=== PATIENT | male | born 1995 | race Caucasian/White ===

== ENCOUNTER 2017-11-05 00:29 | Emergency (ER) | payer BC, MEDICAID, OTHER ==
[2017-11-05] MEDS ORDERED: NICOTINE 21 MG/24 HR PATCH.TD24 TD ONE (01:21)
[2017-11-05] MEDS ORDERED: OLANZAPINE 5 MG TABLET PO ONE (01:21)
--- NOTE | 2017-11-05 01:23 | ER Document Report ---
ED General - General Chief Complaint: Psych Problem Stated Complaint: PSYCH EVAL Time Seen by Provider: 11/05/17 01:08 Notes: Patient is a 22-year-old male with a past medical history of bipolar disorder, polysubstance abuse although reports that he is currently in remission with Suboxone who presents with his mother due to concerns of increasing paranoid delusions and agitation. The mother provides majority of the history as the patient is quite reserved although does intermittently contribute. They report that over the past several weeks although worsening dramatically in the past 48 hours the patient has become increasingly paranoid and appears to be responding to internal stimuli. The patient admits to regularly hearing auditory hallucinations but denies any specific commands. Mother reports that she finds new locks and cameras placed throughout the house each time she returns from work. She states that the patient is easily agitated and rapidly oscillates between being calm and polite to screaming and verbally threatening. She states that the patient did admit to some suicidal ideation when she asked him today but denies homicidal ideation. The patient denies any additional alcohol or drug abuse. He denies a history of symptoms to this degree of intensity in the past although apparently as a teenager did experience auditory hallucinations, was treated for bipolar disorder for a period of time but has been off all medication since 2013. He denies any acute medical complaints. TRAVEL OUTSIDE OF THE [place] IN LAST 30 DAYS: No - Related Data Allergies/Adverse Reactions: No Known Allergies Allergy (Unverified 11/05/17 00:41) Past Medical History - General Information source: Patient - Social History Smoking Status: Current Every Day Smoker Frequency of alcohol use: Heavy Drug Abuse: Marijuana, Prescription drugs Lives with: Family Family History: Reviewed & Not Pertinent Patient has suicidal ideation: Yes Patient has homicidal ideation: No Renal/ Medical History: Denies: Hx Peritoneal Dialysis Review of Systems - Review of Systems Notes: Constitutional: Negative for fever. HENT: Negative for sore throat. Eyes: Negative for visual changes. Cardiovascular: Negative for chest pain. Respiratory: Negative for shortness of breath. Gastrointestinal: Negative for abdominal pain, vomiting or diarrhea. Genitourinary: Negative for dysuria. Musculoskeletal: Negative for back pain. Skin: Negative for rash. Neurological: Negative for headaches, weakness or numbness. 10 point ROS negative except as marked above and in HPI. Physical Exam - Vital signs Vitals: Temp Pulse Resp BP Pulse Ox 98.9 F 83 16 147/79 H 97 11/05/17 00:39 11/05/17 00:39 11/05/17 00:39 11/05/17 00:39 11/05/17 00:39 Interpretation: Normal Notes: PHYSICAL EXAMINATION: GENERAL: Well-appearing, well-nourished and in no acute distress. HEAD: Atraumatic, normocephalic. EYES: Pupils equal round and reactive to light, extraocular movements intact, sclera anicteric, conjunctiva are normal. ENT: nares patent, oropharynx clear without exudates. Moist mucous membranes. NECK: Normal range of motion, supple without lymphadenopathy LUNGS: Breath sounds clear to auscultation bilaterally and equal. No wheezes rales or rhonchi. HEART: Regular rate and rhythm without murmurs ABDOMEN: Soft, nontender, normoactive bowel sounds. No guarding, no rebound. No masses appreciated. EXTREMITIES: Normal range of motion, no pitting or edema. No cyanosis. NEUROLOGICAL: No focal neurological deficits. Moves all extremities spontaneously and on command. PSYCH: Poor eye contact, flat affect. Does not appear to be actively responding to internal stimuli. SKIN: Warm, Dry, normal turgor, no rashes or lesions noted. Course - Re-evaluation Re-evalutation: 11/05/17 01:22 Patient presents with auditory hallucinations with associated commands, quite paranoid, mother at the bedside reports that he is sitting at cameras and placing walks all over the house. 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 He was diagnosed with bipolar disorder in the remote past but has never been diagnosed with schizophrenia, schizoaffective disorder or bipolar disorder with psychotic features. The patient is quiet but calm and cooperative. He is agreeable to remaining in the emergency department and will be given a dose of olanzapine as well as a nicotine patch. I have agreed that given the patient is denying any acute suicidal or homicidal ideation that we can avoid formal involuntary commitment at this time point. However I have emphasized with the patient that if he becomes agitated or begins to present safety concerns we would proceed with IVC. Psychiatrically laboratories will be obtained. He is otherwise cleared for evaluation and disposition by psychiatry in the morning 11/05/17 03:10 Patient is apparently a difficult stick and staff is working to obtain labs. The nurse has informed me that after the mother exited the room the patient did admit to recurrent heroin use and methamphetamine use which could certainly present with paranoid delusions and agitation. Patient continues to be quite cooperative and calm. Continues to deny suicidality - Vital Signs Vital signs: Temp Pulse Resp BP Pulse Ox 98.9 F 83 16 147/79 H 97 11/05/17 00:39 11/05/17 00:39 11/05/17 00:39 11/05/17 00:39 11/05/17 00:39 Discharge - Discharge Clinical Impression: Auditory hallucinations, Paranoid delusion Referrals: LOCALMD,NO [Primary Care Provider] - Follow up as needed
[2017-11-05 04:11] LABS: ABSOLUTE EOSINOPHILS # (AUTO) 0.4 10^3/uL (0.0-0.6); ABSOLUTE LYMPHOCYTES (AUTO) 1.7 10^3/uL (0.5-4.7); ABSOLUTE MONOCYTES (AUTO) 0.4 10^3/uL (0.1-1.4); BASOPHILS % (AUTO) 0.6 % (0-2); EOSINOPHILS % (AUTO) 6.5 % (0-6); HEMATOCRIT 42.3 % (37.9-51.0); HEMOGLOBIN 14.1 g/dL (13.5-17.0); LYMPHOCYTES % (AUTO) 31.2 % (13-45); MEAN CORPUSCULAR HEMOGLOBIN 28.6 pg (27.0-33.4); MEAN CORPUSCULAR HGB CONC 33.2 g/dL (32.0-36.0); MEAN CORPUSCULAR VOLUME 86 fl (80-97); MONOCYTES % (AUTO) 7.9 % (3-13); PLATELET COUNT 243 10^3/uL (150-450); RED BLOOD COUNT 4.92 10^6/uL (4.35-5.55); RED CELL DISTRIBUTION WIDTH 13.4 % (11.5-14.0); SEGMENTED NEUTROPHILS % (AUTO) 53.8 % (42-78); TOTAL CELLS COUNTED % (AUTO) 100 %; WHITE BLOOD COUNT 5.5 10^3/uL (4.0-10.5)
[2017-11-05 04:30] LABS: ALANINE AMINOTRANSFERASE 147 U/L (21-72); ALBUMIN 3.8 g/dL (3.5-5.0); ALKALINE PHOSPHATASE 70 U/L (38-126); ANION GAP 15 (5-19); ASPARTATE AMINO TRANSFERASE 91 U/L (17-59); BILIRUBIN,DIRECT 0.2 mg/dL (0.0-0.4); BILIRUBIN,TOTAL 0.3 mg/dL (0.2-1.3); BLOOD UREA NITROGEN 17 mg/dL (7-20); CALCIUM 9.4 mg/dL (8.4-10.2); CARBON DIOXIDE 27 mmol/L (22-30); CHLORIDE 102 mmol/L (98-107); GLUCOSE 105 mg/dL (75-110); SODIUM 144.3 mmol/L (137-145); TOTAL PROTEIN 6.9 g/dL (6.3-8.2)
[2017-11-05 04:31] LABS: ACETAMINOPHEN < 10 ug/mL (10-30); ALCOHOL < 10 mg/dL (NONE DETECTED); SALICYLATE < 1.0 mg/dL (2.0-20.0)
--- NOTE | 2017-11-05 07:35 | EKG REPORT ---
SEVERITY:- BORDERLINE ECG - SINUS RHYTHM ST ELEVATION SUGGESTS NORMAL VARAINT, CLINICAL CORRELATION NEEDED. : Confirmed by: Silvestre Quinn MD 05-Nov-2017 07:35:14
[2017-11-05] MEDS ORDERED: BUPRENORPHINE HCL 2 MG SUBLINGUAL TABLET SL SCH (10:00)
[2017-11-05] MEDS ORDERED: IBUPROFEN 600 MG TABLET PO ONE (10:04)
[2017-11-05] MEDS ORDERED: ACETAMINOPHEN 325 MG TABLET PO ONE (10:04)
--- NOTE | 2017-11-05 10:04 | ER Document Report ---
Doctor's Note Notes: 11/05/17 10:01 22-year-old male presented yesterday 11/04/2017 with increasing paranoia, auditory hallucinations. Patient does have a history of bipolar disorder, substance abuse. Patient is taking Subutex for remote heroin abuse. Mother brought in medication today which has been added to his daily medication orders. Patient evaluated by psychiatry who has initiated IVC paperwork. Additional medication recommendations include Haldol 5 mg twice daily and Cogentin 1 mg daily. Upon my exam patient is resting comfortably, complaining of a headache. He has been cooperative overnight. Patient will be held and stabilized here and further evaluated by psychiatry to determine disposition. PHYSICAL EXAMINATION: GENERAL: Well-appearing, well-nourished and in no acute distress. HEAD: Atraumatic, normocephalic. EYES: Pupils equal round extraocular movements intact, conjunctiva are normal. ENT: Nares patent NECK: Normal range of motion LUNGS: No respiratory distress Musculoskeletal: Normal range of motion NEUROLOGICAL: Normal speech, normal gait. PSYCH: Normal mood, normal affect. SKIN: Warm, Dry, normal turgor, no rashes or lesions noted.
[2017-11-05] MEDS: HALOPERIDOL 5 MG TABLET PO SCH ×2 (10:17→19:08)
[2017-11-05] MEDS: BENZTROPINE MESYLATE INJ 2 MG/2 ML AMPULE IM SCH (10:19)
[2017-11-05 11:02] LABS: APPEARANCE,URINE CLEAR; BILIRUBIN,URINE NEGATIVE (NEGATIVE); COLOR,URINE YELLOW; GLUCOSE, URINE NEGATIVE (NEGATIVE); KETONES,URINE NEGATIVE (NEGATIVE); LEUKOCYTE ESTERASE,URINE NEGATIVE (NEGATIVE); NITRITE,URINE NEGATIVE (NEGATIVE); PROTEIN,URINE NEGATIVE (NEGATIVE); URINE SPECIFIC GRAVITY 1.023
[2017-11-05 11:07] LABS: URINE BARBITURATES SCREEN NEGATIVE; URINE BENZODIAZEPINES SCREEN NEGATIVE; URINE COCAINE SCREEN UNCONFIRMED POSITIVE; URINE MARIJUANA (THC) SCREEN NEGATIVE; URINE METHADONE SCREEN NEGATIVE; URINE PHENCYCLIDINE SCREEN NEGATIVE
[2017-11-05] MEDS: BUPRENORPHINE HCL 2 MG SUBLINGUAL TABLET SL SCH (19:13)
[2017-11-06] MEDS: BENZTROPINE MESYLATE INJ 2 MG/2 ML AMPULE IM SCH (09:11)
[2017-11-06] MEDS: HALOPERIDOL 5 MG TABLET PO SCH ×2 (09:12→17:32)
[2017-11-06] MEDS: BUPRENORPHINE HCL 2 MG SUBLINGUAL TABLET SL SCH (09:31)
--- NOTE | 2017-11-06 16:44 | ER Document Report ---
Doctor's Note Notes: 11/06/17 16:44 Patient has been resting comfortably today without problems. He has been accepted at [facility] and should be transported tomorrow.
[2017-11-06] MEDS ORDERED: NICOTINE 21 MG/24 HR PATCH.TD24 TD ONE (18:12)
[2017-11-07 08:42] VITALS: BP 110/70
--- NOTE | 2017-11-07 09:52 | ER Document Report ---
Doctor's Note Notes: 11/07/17 09:51 Rounds: Chart reviewed and patient interviewed. Patient's being evaluated for agitation, paranoia, and substance abuse (drug screen positive for cocaine and amphetamines. Vital signs are all normal. Lab studies are normal except for his drug screen positive for cocaine and amphetamines. Patient appears to be medically stable for transfer or discharge. Patient has been accepted at [facility] and should be transported there today. Mukund Villalba MD
[2017-11-07] MEDS: BENZTROPINE MESYLATE INJ 2 MG/2 ML AMPULE IM SCH (09:57)
[2017-11-07] MEDS: HALOPERIDOL 5 MG TABLET PO SCH (09:57)
[2017-11-07] MEDS: BUPRENORPHINE HCL 2 MG SUBLINGUAL TABLET SL SCH (09:57)
[2017-11-07] MEDS ORDERED: NICOTINE 21 MG/24 HR PATCH.TD24 TD ONE (10:04)
--- NOTE | 2017-11-07 11:17 | PSYCHOLOGICAL NOTE ---
Psych Note - Psych Note Psych Note: Reason for consult: Paranoia Consent permissions: Patient requests that his substance abuse and toxicology screenings are not discussed with his mother Patient presents to ED accompanied by mother, with increased paranoia, feelings of being followed and watched, and increase in anxiety. Patient lying in bed, withdrawn from conversation, mother frequently answers questions for him. Mother reports patient has installed cameras around the home, placed new locks and bolts on his bedroom door. Symptoms have been present approximately 1 month. Patient disclosed that he arrived to [facility] because his mother drove him. He reports he has been "hearing voices and stuff." He reports that the last couple weeks it has gotten worse however it has been going on for a while. He states that when he hears voices "it is like someone is standing right next me and was spurring in my ear." Patient discloses he is prescribed Adderall and that he did meth approximately 5 days ago however disclosed that at the time he "thought it was a mollie." Patient discloses that has been about 2 months since he has used heroin and reports he is prescribed Subutex. Patient reports that he felt like harming himself last night. When asked if he had a plan he stated "hanging myself because I do not own a gun." He reports that he has had chronic suicidal ideation for the past 2 years however has never attempted. He confirms maladaptive coping skills of cutting and using drugs. Patient confirms that he is not having thoughts of harming himself "right the second" then stated "its the stuff I hear... that stuff they say..." Patient's mother discloses the patient has a history of being diagnosed bipolar since a young age. She reports that the patient went to detox in 2013. She disclosed that she has noticed the patient's presentation getting worse with increased paranoia, locking things around the home, installing cameras, accusing people of watching him and stating that he is hearing voices. She reports that the patient mentioned wanting to harm himself so brought him in last night. Patient is alert and orientated to person, place, time, and circumstance. Mood is euthymic with flat affect. Patient endorses chronic suicidal ideation and reports a plan last night of hanging himself "because I don't own a gun." Patient denies homicidal ideation. Patient endorses command auditory hallucinations. Medication recommendations per [facility]'s contracted psychiatrist Dr. Micah QUINTANA are as follows: 1. Haldol 5 mg twice daily 2. 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 Patient discloses command auditory hallucinations with concerns of suicidal ideation. It appears the patient has been attempting to self medicate for multiple years from a mental health diagnosis of bipolar disorder identified at a young age. Patient discloses suicidal plan of hanging himself because he did not have access to a gun. Dr. Vazquez was consulted on the care and management as patient; attending physician is in agreement with recommendations and disposition.
--- NOTE | 2017-11-07 12:29 | PSYCHOLOGICAL NOTE ---
Psych Note - Psych Note Psych Note: Reason for consult: Paranoia Consent permissions: Patient requests that his substance abuse and toxicology screenings are not discussed with his mother Patient presents to ED accompanied by mother, with increased paranoia, feelings of being followed and watched, and increase in anxiety. Patient lying in bed, withdrawn from conversation, mother frequently answers questions for him. Mother reports patient has installed cameras around the home, placed new locks and bolts on his bedroom door. Symptoms have been present approximately 1 month. Check-in conducted with patient Patient still is presenting flat. Clinician spoke with patient's mother about placement to [facility]. Patient initially stated he was not going then started to cry. Clinician notes patient has since been very calm. Patient's mother discloses the patient's reaction was much better than she anticipated ( patient's mother was concerned the patient would become very irate and aggressive upon being told). Medication recommendations per [facility]'s contracted psychiatrist Dr. Micah QUINTANA are as follows: 1. Haldol 5 mg twice daily 2. 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 Patient discloses auditory hallucinations with concerns of suicidal ideation. Patient has reports a plan of hanging himself because he did not have access to a gun. It appears the patient has been attempting to self medicate for multiple years from a mental health diagnosis of bipolar disorder identified at a young age. Patient disclosed chronic suicidal ideation with command auditory hallucination to kill himself. Patient has been accepted to [facility]; transportation will occur today. Dr. Vazquez was consulted and the care management this patient; attending physician is agreement with recommendations and disposition
--- NOTE | 2017-11-07 13:01 | PSYCHOLOGICAL NOTE ---
Psych Note - Psych Note Psych Note: Reason for consult: Paranoia Consent permissions: Patient's mother Patient presents to ED accompanied by mother, with increased paranoia, feelings of being followed and watched, and increase in anxiety. Patient lying in bed, withdrawn from conversation, mother frequently answers questions for him. Mother reports patient has installed cameras around the home, placed new locks and bolts on his bedroom door. Symptoms have been present approximately 1 month. Check-in conducted with patient Patient discloses he is unwilling to go to inpatient substance abuse treatment again. Patient initially continued to refuse to allow his mother to have information on his substance abuse however patient did provide consent after finding out that he would be staying another evening. Clinician spoke with patient and patient's mother together. Clinician notes patient's mother has demonstrated a significant caretaking role i.e. making the patient's bed, spoon feeding the patient etc. patient's mother discloses concern the patient would not do well inpatient because of his past experience. She reports the patient did go to residential rehab in 2013. She disclosed the patient has not been on Subutex since then it is a newer medication added for the hope of combating relapse. Patient is noted to be withdrawn during the conversation and frequently covers his eyes with his arm. Patient does admit to auditory hallucinations previous evening since arriving to [facility] but denies current. Patient became slightly agitated when thinking the clinician did not "believe" the patient and wanted to leave. Patient was easily calmed however still makes very poor eye contact and minimizes symptoms and substance abuse. Medication recommendations per [facility]'s contracted psychiatrist Dr. Micah QUINTANA are as follows: 1. Haldol 5 mg twice daily 2. 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 Patient discloses auditory hallucinations with concerns of suicidal ideation. It appears the patient has been attempting to self medicate for multiple years from a mental health diagnosis of bipolar disorder identified at a young age. Dr. Vazquez was consulted and the care management this patient; attending physician is agreement with recommendations and disposition.
== END 2017-11-07 12:40 ==
LOC: ER 00:29
DX: F22 Delusional disorders (principal); R45.851 Suicidal ideations; F12.10 Cannabis abuse, uncomplicated; F14.10 Cocaine abuse, uncomplicated; F15.10 Other stimulant abuse, uncomplicated; F11.21 Opioid dependence, in remission; Z79.899 Other long term (current) drug therapy; F17.200 Nicotine dependence, unspecified, uncomplicated
CPT/HCPCS: 93005; 99285; 96372; 36415; 80307 ×4; 85025; 80053; 81001; 93010; J0515 ×3; J0571 ×3

== ENCOUNTER 2018-01-08 17:41 | Emergency (ER) | payer BC ==
--- NOTE | 2018-01-08 18:09 | ER Document Report ---
ED Medical Screen (RME) - General Chief Complaint: Psych Problem Stated Complaint: PSYCH EVAL Time Seen by Provider: 01/08/18 17:51 Mode of Arrival: Ambulatory Information source: Patient Notes: 22-year-old male with a history of paranoid schizophrenia brought into the emergency department by mom for suicidal ideations, worsening hallucinations, worsening delusions. Mom states over the last couple of days the patient has been stating that people are after him and they are trying to get him and get into the house. Patient told his mortgage loan officer originator today that someone was going to find him "hanging". Unclear if he was chapo gto hang himself or if he thought someone was going to kill him. juvenile detention officer made the patient come to the emergency department for an evaluation. Mom states that the patient is supposed to be on Risperdal but they cannot afford the medication. Patient has not been following up with a psychiatrist. I have greeted and performed a rapid initial assessment of this patient. A comprehensive ED assessment and evaluation of the patient, analysis of test results and completion of the medical decision making process will be conducted by additional ED providers. PHYSICAL EXAMINATION: GENERAL: Well-appearing, well-nourished and in no acute distress. HEAD: Atraumatic, normocephalic. EYES: Pupils equal round extraocular movements intact, conjunctiva are normal. ENT: Nares patent NECK: Normal range of motion LUNGS: No respiratory distress Musculoskeletal: Normal range of motion NEUROLOGICAL: Normal speech, normal gait. PSYCH: Paranoid schizophrenia. Suicidal ideations. SKIN: Warm, Dry, normal turgor, no rashes or lesions noted. TRAVEL OUTSIDE OF THE [place] IN LAST 30 DAYS: No - Related Data Allergies/Adverse Reactions: No Known Allergies Allergy (Unverified 11/05/17 00:41) Past Medical History - Social History Chew tobacco use (# tins/day): No Frequency of alcohol use: Heavy Drug Abuse: None Renal/ Medical History: Denies: Hx Peritoneal Dialysis Psychiatric Medical History: Reports: Hx Attention Deficit Hyperactivity Disorder Past Surgical History: Reports: Hx Tonsillectomy Physical Exam - Vital signs Vitals: Temp Pulse Resp BP Pulse Ox 98.9 F 95 16 154/89 H 99 01/08/18 17:45 01/08/18 17:45 01/08/18 17:45 01/08/18 17:45 01/08/18 17:45 Course - Vital Signs Vital signs: Temp Pulse Resp BP Pulse Ox 98.9 F 95 16 154/89 H 99 01/08/18 17:45 01/08/18 17:45 01/08/18 17:45 01/08/18 17:45 01/08/18 17:45
[2018-01-08 19:06] LABS: ABSOLUTE EOSINOPHILS # (AUTO) 0.1 10^3/uL (0.0-0.6); ABSOLUTE LYMPHOCYTES (AUTO) 1.7 10^3/uL (0.5-4.7); ABSOLUTE MONOCYTES (AUTO) 0.3 10^3/uL (0.1-1.4); ABSOLUTE NEUT (AUTO) 5.1 10^3/uL (1.7-8.2); BASOPHILS % (AUTO) 0.6 % (0-2); EOSINOPHILS % (AUTO) 1.6 % (0-6); HEMATOCRIT 40.7 % (37.9-51.0); HEMOGLOBIN 14.3 g/dL (13.5-17.0); LYMPHOCYTES % (AUTO) 23.7 % (13-45); MEAN CORPUSCULAR HEMOGLOBIN 29.7 pg (27.0-33.4); MEAN CORPUSCULAR HGB CONC 35.1 g/dL (32.0-36.0); MEAN CORPUSCULAR VOLUME 85 fl (80-97); MONOCYTES % (AUTO) 3.8 % (3-13); PLATELET COUNT 277 10^3/uL (150-450); RED BLOOD COUNT 4.81 10^6/uL (4.35-5.55); RED CELL DISTRIBUTION WIDTH 13.5 % (11.5-14.0); SEGMENTED NEUTROPHILS % (AUTO) 70.3 % (42-78); TOTAL CELLS COUNTED % (AUTO) 100 %; URINE BARBITURATES SCREEN NEGATIVE; URINE BENZODIAZEPINES SCREEN NEGATIVE; URINE COCAINE SCREEN NEGATIVE; URINE MARIJUANA (THC) SCREEN NEGATIVE; URINE METHADONE SCREEN NEGATIVE; URINE PHENCYCLIDINE SCREEN NEGATIVE; WHITE BLOOD COUNT 7.3 10^3/uL (4.0-10.5)
[2018-01-08 19:26] LABS: ACETAMINOPHEN < 10 ug/mL (10-30); ALANINE AMINOTRANSFERASE 39 U/L (21-72); ALBUMIN 4.4 g/dL (3.5-5.0); ALCOHOL < 10 mg/dL (NONE DETECTED); ALKALINE PHOSPHATASE 84 U/L (38-126); ANION GAP 7 (5-19); ASPARTATE AMINO TRANSFERASE 22 U/L (17-59); BILIRUBIN,DIRECT 0.2 mg/dL (0.0-0.4); BILIRUBIN,TOTAL 0.6 mg/dL (0.2-1.3); BLOOD UREA NITROGEN 11 mg/dL (7-20); CALCIUM 9.8 mg/dL (8.4-10.2); CARBON DIOXIDE 30 mmol/L (22-30); CHLORIDE 101 mmol/L (98-107); GLUCOSE 97 mg/dL (75-110); POTASSIUM 4.3 mmol/L (3.6-5.0); SALICYLATE < 1.0 mg/dL (2.0-20.0); SODIUM 138.2 mmol/L (137-145); TOTAL PROTEIN 7.6 g/dL (6.3-8.2)
[2018-01-08] MEDS ORDERED: OLANZAPINE 5 MG TABLET PO ONE (20:04)
--- NOTE | 2018-01-08 20:06 | ER Document Report ---
ED Psych Disorder / Suicide - General Chief Complaint: Psych Problem Stated Complaint: PSYCH EVAL Time Seen by Provider: 01/08/18 17:51 Mode of Arrival: Ambulatory Notes: This is a 22-year-old male with history of schizophrenia and polysubstance abuse to the emergency department for evaluation of worsening paranoia. Patients mother states that he has been having paranoia about people coming after him and coming after herself. Patient admits to having a substance abuse with methamphetamines. Patient is currently on probation and house arrest with ankle brace at present. According to mother he has been accepted at a drug treatment facility in [place] however when he was visiting with his chief fundraising officer today per officer stated to mother that he was talking about having fears that somebody was trying to hang him or that he may actually hang himself. Patient is denying any suicidal ideation. Does not want to talk. Is supposed to be taking medications but is afraid of them at this time. TRAVEL OUTSIDE OF THE [place] IN LAST 30 DAYS: No - HPI Patient complains to provider of: Bizarre behavior, Hallucinating Onset was: Gradual - Related Data Allergies/Adverse Reactions: No Known Allergies Allergy (Unverified 11/05/17 00:41) Past Medical History - General Information source: Patient - Social History Smoking Status: Current Every Day Smoker Chew tobacco use (# tins/day): No Frequency of alcohol use: Heavy Drug Abuse: None Lives with: Family, Parents Family History: Reviewed & Not Pertinent Patient has suicidal ideation: No Patient has homicidal ideation: No - Medical History Notes: Substance abuse, schizophrenia paranoid type Renal/ Medical History: Denies: Hx Peritoneal Dialysis Psychiatric Medical History: Reports: Hx Attention Deficit Hyperactivity Disorder Past Surgical History: Reports: Hx Tonsillectomy Review of Systems - Review of Systems Notes: Constitutional: denies: Chills, Diaphoresis, Fever, Malaise, Weakness EENT: denies: Eye discharge, Blurred vision, Tearing, Double vision, Nose congestion, Nose discharge, Throat swelling, Mouth pain Cardiovascular: denies: Palpitations, Heart racing, Orthopnea, Dyspnea, Chest pain Respiratory: denies: Cough, Hurts to breathe, Wheezing, Shortness of breath Gastrointestinal: denies: Abdominal pain, Diarrhea, Nausea, Vomiting, Black stools, bright red blood in stool Genitourinary: denies: Burning, Dysuria, Discharge, Frequency, Flank pain, Hematuria Musculoskeletal: denies: Joint pain, Joint swelling, Muscle pain, Muscle stiffness, back pain Hematologic/Lymphatic: denies: Anemia, Easy bleeding, Easy bruising, Blood clots Neurological/Psychological: denies: Confusion, Dementia, Depression, Loss of consciousness. Does endorse some paranoid thoughts and substance abuse Skin: No lesions, no masses, no skin breakdown, no abscesses Physical Exam - Vital signs Vitals: Temp Pulse Resp BP Pulse Ox 98.9 F 95 16 154/89 H 99 01/08/18 17:45 01/08/18 17:45 01/08/18 17:45 01/08/18 17:45 01/08/18 17:45 Interpretation: Normal - General General appearance: Appears well, Alert - HEENT Head: Normocephalic, Atraumatic Eyes: Normal Pupils: PERRL - Respiratory Respiratory status: No respiratory distress Chest status: Nontender Breath sounds: Normal Chest palpation: Normal - Cardiovascular Rhythm: Regular Heart sounds: Normal auscultation Murmur: No - Abdominal Inspection: Normal Distension: No distension Bowel sounds: Normal Tenderness: Nontender Organomegaly: No organomegaly - Back Back: Normal, Nontender - Extremities General upper extremity: Normal inspection, Nontender, Normal color, Normal ROM , Normal temperature General lower extremity: Normal inspection, Nontender, Normal color, Normal ROM , Normal temperature, Normal weight bearing. No: Van's sign - Neurological Neuro grossly intact: Yes Cognition: Normal Orientation: AAOx4 [place] Coma Scale Eye Opening: Spontaneous [place] Coma Scale Verbal: Oriented [place] Coma Scale Motor: Obeys Commands [place] Coma Scale Total: 15 Speech: Normal Motor strength normal: LUE, RUE, LLE, RLE Sensory: Normal - Psychological Associated symptoms: Other - Patient is tearful. Has a hard time maintaining eye contact. Does seem quite skeptical of everyone in the room. Does endorse some paranoid thoughts. Does endorse substance abuse. - Skin Skin Temperature: Warm Skin Moisture: Dry Skin Color: Normal Course - Re-evaluation Re-evalutation: 01/08/18 22:18 At this time will do psych screening labs. Will give 01/09/18 00:20 Resting comfortable at this time. Will await input from mental health in the morning. Patient is calm. Not on IVC. Not requiring any further intervention. - Vital Signs Vital signs: Temp Pulse Resp BP Pulse Ox 98.9 F 95 16 154/89 H 99 01/08/18 17:45 01/08/18 17:45 01/08/18 17:45 01/08/18 17:45 01/08/18 17:45 - Laboratory Result Diagrams: 01/08/18 18:15 01/08/18 18:15 Laboratory results interpreted by me: 01/08/18 18:15 Salicylates < 1.0 L Acetaminophen < 10 L Discharge - Discharge Clinical Impression: Substance abuse Schizophrenia Qualifiers: Schizophrenia type: paranoid schizophrenia Qualified Code(s): F20.0 - Paranoid schizophrenia Condition: Good
[2018-01-08] MEDS ORDERED: NICOTINE 21 MG/24 HR PATCH.TD24 TD ONE (20:15)
--- NOTE | 2018-01-09 07:59 | EKG REPORT ---
SEVERITY:- NORMAL ECG - SINUS RHYTHM : Confirmed by: Silvestre Quinn MD 09-Jan-2018 07:58:42
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
[2018-01-09] MEDS ORDERED: DIPHENHYDRAMINE HCL 50 MG/ML VIAL IM ONE (09:16)
[2018-01-09] MEDS ORDERED: HALOPERIDOL LACTATE INJ 5 MG/1 ML VIAL IM ONE (09:16)
[2018-01-09] MEDS ORDERED: LORAZEPAM INJ 2 MG/1 ML VIAL IM ONE (09:16)
[2018-01-09] MEDS ORDERED: BENZTROPINE MESYLATE INJ 2 MG/2 ML AMPULE IM ONE (09:22)
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
[2018-01-09] MEDS: BUPRENORPHINE HCL 2 MG SUBLINGUAL TABLET SL SCH (11:01)
[2018-01-09] MEDS: HALOPERIDOL 5 MG TABLET PO SCH (17:40)
[2018-01-10] MEDS: BUPRENORPHINE HCL 2 MG SUBLINGUAL TABLET SL SCH (07:40)
[2018-01-10] MEDS: BENZTROPINE MESYLATE 1 MG TABLET PO SCH (07:40)
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
[2018-01-10] MEDS: HALOPERIDOL 5 MG TABLET PO SCH ×2 (10:08→17:19)
--- NOTE | 2018-01-11 10:07 | ER Document Report ---
Doctor's Note Notes: 01/11/18 10:05 Rounds: Chart reviewed and patient interviewed. Patient is being evaluated for nonspecific psychosis. History of schizophrenia and substance abuse. Patient' s mother in the room. Patient is awake and alert and cooperative and answers questions appropriately. Lab studies were all normal with the exception that his amphetamines were not able to be resulted on his drug screen because of interfering substances. Vital signs are all normal. Patient appears to be medically stable for transfer or discharge. Mukund Villalba MD
[2018-01-11] MEDS: ZIPRASIDONE HCL 20 MG CAPSULE PO SCH (11:54)
[2018-01-11] MEDS: HALOPERIDOL 5 MG TABLET PO SCH ×2 (11:54→18:00)
[2018-01-11] MEDS: BENZTROPINE MESYLATE 1 MG TABLET PO SCH ×2 (11:54→20:23)
[2018-01-11] MEDS: BUPRENORPHINE HCL 2 MG SUBLINGUAL TABLET SL SCH (11:55)
--- NOTE | 2018-01-11 15:23 | PSYCHOLOGICAL NOTE ---
Psych Note - Psych Note Date seen by psych provider: 01/11/18 Time seen by psych provider: 07:50 Psych Note: reason for Consult: psychosis This is a 22-year-old male with history of schizophrenia and polysubstance abuse to the emergency department for evaluation of worsening paranoia. Check in with patient conducted Patient does make eye contact today and states he is feeling somewhat better however confirms concern of still having people after him. Patient presentation is improved however still has very limited in engagement. Patient is noted to have some psychomotor agitation of moving his legs however makes an effort at engaging. Patient first attempted to state he was fine and calm. After further discussion on the importance of being honest to get the help needed, he admitted to continued concerns the medication is not effective. He reports still feeling very anxious and wants to be able to make it to [place] for treatment. Patient's mother discloses the commanding officer homicide squad will be coming by to take the ankle bracelet off and patient's father will be flying from [place] and arriving tomorrow afternoon. Once patient is discharged the plan will be for the patient and father to drive to [place] straight to the inpatient facility for dual treatment. Medication recommendations per [facility]'s contracted psychiatrist Dr. Micah QUINTANA are as follows: 1. Haldol 5 mg twice daily 2. Please increase Cogentin to 1 mg twice daily 3. Please add Cogentin 20 mg daily Diagnosis 298.9 (F29) unspecified psychosis Impression\plan: Patient is recommended for continued IVC. Patient's presentation has improved however still has some adenoid delusions. Updated medication recommendations have been provided. patient will be reevaluated. Currently appears the patient will be stabilized and ready for discharge into his [facility] care tomorrow so he can be transported to a dual treatment facility. Dr. Vazquez was consulted and the care and management of this patient ; attending physicians in agreement with recommendations and disposition.
[2018-01-11] MEDS ORDERED: BENZTROPINE MESYLATE 1 MG TABLET PO SCH (18:00)
[2018-01-12] MEDS: BENZTROPINE MESYLATE 1 MG TABLET PO SCH ×2 (07:00→09:00)
[2018-01-12] MEDS: BUPRENORPHINE HCL 2 MG SUBLINGUAL TABLET SL SCH (08:59)
[2018-01-12] MEDS: HALOPERIDOL 5 MG TABLET PO SCH (09:00)
[2018-01-12] MEDS: ZIPRASIDONE HCL 20 MG CAPSULE PO SCH (09:46)
--- NOTE | 2018-01-12 10:00 | ER Document Report ---
Doctor's Note Notes: 01/12/18 09:59 This 22-year-old man was brought in for evaluation of worsening flight of thoughts, paranoia and suicidality. He has been seen and evaluated through our mental health services team and started on Geodon in addition to Cogentin and Geodon. His mother has been in contact with his sales promotion officer in regards to having his ankle monitor removed such that he will be able to pursue inpatient treatment for his substance abuse as well as continued counseling regarding his mental health problems. At this time he does not meet further criteria for continued hold as he is not suicidal, not homicidal, and appears to have appropriate insight. Current plan will be for this patient undergo discharge in the care of his mother with return precautions. His mother was encouraged to come back in case of any worsening in his mood. Discharge - Discharge Clinical Impression: Substance abuse Schizophrenia Qualifiers: Schizophrenia type: paranoid schizophrenia Qualified Code(s): F20.0 - Paranoid schizophrenia Condition: Stable Disposition: HOME, SELF-CARE Additional Instructions: You were seen in the ED and evaluated by the Medical and Behavioral Health Teams for schizophrenia and substance abuse and determined to be appropriate for discharge at this time. Schizophrenia Schizophrenia is a chemical disorder that affects how the brain functions. The exact cause is unknown, but it tends to run in families. It is NOT caused by emotional trauma. Schizophrenia causes disordered thinking, including unusual beliefs and inability to "process" happenings around the patient. Patients with schizophrenia benefit greatly from medicine. These medicines are called antipsychotics. Never stop the medicine without the doctor 's approval. Counselling may help the patient deal with his disease. Schizophrenics require a very ordered environment. Stresses and sudden changes may bring out symptoms. Drugs and alcohol abuse may become problems. Contact the counsellor or crisis line if there are thoughts of suicide or of harming others, or if you become aware of unusual thoughts or beliefs Prescriptions: Benztropine Mesylate [Cogentin 1 mg Tablet] 1 mg PO BID #30 tablet Haloperidol [Haldol 5 mg Tablet] 5 mg PO BID #20 tablet Hydroxyzine HCl [Atarax 25 mg Tablet] 1 - 2 tab PO QID #25 tablet Ziprasidone HCl [Geodon 20 Mg Capsule] 20 mg PO DAILY #20 capsule Forms: Smoking Cessation Education
[2018-01-12 10:22] VITALS: BP 124/80
== END 2018-01-12 10:19 | disposition home or self-care (01) ==
LOC: ER 17:41
DX: F20.0 Paranoid schizophrenia (principal); F15.10 Other stimulant abuse, uncomplicated; F17.200 Nicotine dependence, unspecified, uncomplicated
CPT/HCPCS: 93005; 99285; 96372; 36415; 80307 ×4; 85025; 80053; 93010; J0515; J1630; J2060; J0571 ×4